=== PATIENT | female | born 1960 | race African-American/Black ===

== ENCOUNTER 2016-12-28 00:33 | Emergency (ER) | payer MEDICARE, MEDICAID ==
[~2016-12-28] VITALS: Ht 157.5 cm; Wt 71.0 kg
[~2016-12-28 00:33] MED LIST: ALBUTEROL; ATOR20TA; CARI250T; MONT4TAB9; PREDNISONE; VIC; ZOLOFT
[2016-12-28] MEDS ORDERED: ALBUTEROL (0.083%) 2.5MG/3ML NEB HHN STA (02:16)
[2016-12-28] MEDS ORDERED: AZITHROMYCIN 500 MG TABLET PO STA (02:16)
[2016-12-28] MEDS ORDERED: IPRATROPIUM BROMIDE (0.02%) 0.5MG/2.5ML NEB HHN STA (02:16)
[2016-12-28] MEDS ORDERED: METHYLPREDNISOLONE SOD SUCC 125 MG/2 ML VIAL IV STA (02:16)
[2016-12-28] MEDS ORDERED: MAGNESIUM 2 G PREMIX 50 ML IV ONE (02:30)
[2016-12-28 06:29] VITALS: BP 112/66
== END 2016-12-28 07:00 | disposition home or self-care (01) ==
LOC: ER 00:33
DX: J45.901 Unspecified asthma with (acute) exacerbation (principal); E78.00 Pure hypercholesterolemia, unspecified; Z88.0 Allergy status to penicillin; Z88.5 Allergy status to narcotic agent; Z88.6 Allergy status to analgesic agent
CPT/HCPCS: 71010; 96365; 96366; 96375; 99285; J2930; J3475; J7611; 99284

== ENCOUNTER 2017-02-22 21:01 | Emergency (ER) | payer MEDICARE, MEDICAID ==
[~2017-02-22] VITALS: Ht 157.5 cm; Wt 72.0 kg
[2017-02-22] MEDS ORDERED: HYDROCODONE/ACETAMINOPHEN 10/325MG TABLET PO ONE (22:00)
[2017-02-22 23:06] VITALS: BP 140/85
== END 2017-02-22 23:10 | disposition home or self-care (01) ==
LOC: ER 21:01
DX: S39.012A Strain of muscle, fascia and tendon of lower back, initial encounter (principal); R07.89 Other chest pain; E78.00 Pure hypercholesterolemia, unspecified; J45.909 Unspecified asthma, uncomplicated; Z88.0 Allergy status to penicillin; Z88.5 Allergy status to narcotic agent; Z88.6 Allergy status to analgesic agent; V89.2XXA Person injured in unspecified motor-vehicle accident, traffic, initial encounter; Y93.89 Activity, other specified; Y92.89 Other specified places as the place of occurrence of the external cause; Y99.8 Other external cause status
CPT/HCPCS: 71010; 99283

== ENCOUNTER 2017-09-03 11:04 | Emergency (ER) | payer MEDICARE, MEDICAID ==
[~2017-09-03] VITALS: Ht 157.5 cm; Wt 68.0 kg
[2017-09-03] MEDS ORDERED: ALBUTEROL (0.083%) 2.5MG/3ML NEB HHN STA (11:21)
[2017-09-03] MEDS ORDERED: IPRATROPIUM BROMIDE (0.02%) 0.5MG/2.5ML NEB HHN STA (11:21)
[2017-09-03] MEDS ORDERED: PREDNISONE 20MG TABLET PO STA (11:21)
[2017-09-03] MEDS ORDERED: ACETAMINOPHEN 325MG TABLET PO ONE (12:00)
[2017-09-03 13:55] VITALS: BP 127/84
== END 2017-09-03 13:58 | disposition home or self-care (01) ==
LOC: ER 13:16
DX: J45.901 Unspecified asthma with (acute) exacerbation (principal); E78.00 Pure hypercholesterolemia, unspecified; Z88.0 Allergy status to penicillin; Z88.6 Allergy status to analgesic agent; Z98.890 Other specified postprocedural states
CPT/HCPCS: 71045; 94640; 99283; J7512; J7611

== ENCOUNTER 2017-09-29 12:53 | Emergency (ER) | payer MEDICARE, MEDICAID ==
[~2017-09-29] VITALS: Ht 162.6 cm; Wt 67.0 kg
[2017-09-29 16:30] VITALS: BP 126/77
== END 2017-09-29 17:00 | disposition home or self-care (01) ==
LOC: ER 13:52
DX: S92.911A Unspecified fracture of right toe(s), initial encounter for closed fracture (principal); E78.00 Pure hypercholesterolemia, unspecified; J45.909 Unspecified asthma, uncomplicated; Z98.890 Other specified postprocedural states; Z88.6 Allergy status to analgesic agent; Z88.5 Allergy status to narcotic agent; Z88.0 Allergy status to penicillin; W22.8XXA Striking against or struck by other objects, initial encounter; Y93.89 Activity, other specified; Y92.018 Other place in single-family (private) house as the place of occurrence of the external cause
CPT/HCPCS: 73610; 73630; 99284

== ENCOUNTER 2018-02-06 20:42 | Emergency (ER) | payer MEDICARE, MEDICAID ==
[~2018-02-06] VITALS: Ht 157.5 cm; Wt 66.0 kg
[2018-02-07] MEDS ORDERED: ALBUTEROL (0.083%) 2.5MG/3ML NEB HHN STA ×2 (00:03→01:52)
[2018-02-07] MEDS ORDERED: IPRATROPIUM BROMIDE (0.02%) 0.5MG/2.5ML NEB HHN STA (00:03)
[2018-02-07] MEDS ORDERED: PREDNISONE 20MG TABLET PO STA (01:52)
[2018-02-07 03:01] LABS: BASOPHILS % 0.5 % (0.0-2.0); EOSINOPHILS % 0.9 % (0.0-5.0); HEMATOCRIT. 38.4 % (36.0-48.0); HEMOGLOBIN. 12.7 g/dL (12.0-16.0); LYMPHOCYTES % 45.9 % (20.0-50.0); MEAN CORPUSCULAR HEMOGLOBIN 28.9 pg (28.0-32.0); MEAN PLATELET VOLUME 9.1 fl (7.4-10.4); MONOCYTES % 9.2 % (2.0-8.0); NEUTROPHILS % 43.5 % (40.0-76.0); PLATELET 266 x1000/uL (130-400); RED BLOOD CELL COUNT 4.41 mill/uL (4.2-5.4); RED CELL DISTRIBUTION WIDTH 13.2 % (11.6-14.6)
[2018-02-07 03:04] LABS: CHLORIDE 105 mEq/L (98-107)
[2018-02-07] MEDS ORDERED: POTASSIUM CHLORIDE 20MEQ TABLET SR PO SCH (03:30)
[2018-02-07 03:58] VITALS: BP 109/61
== END 2018-02-07 04:07 | disposition home or self-care (01) ==
LOC: ER 20:42
DX: J45.901 Unspecified asthma with (acute) exacerbation (principal); R07.89 Other chest pain; R10.13 Epigastric pain; E78.00 Pure hypercholesterolemia, unspecified; E87.6 Hypokalemia; Z88.5 Allergy status to narcotic agent; Z88.6 Allergy status to analgesic agent; Z88.0 Allergy status to penicillin; Z90.89 Acquired absence of other organs; Z98.890 Other specified postprocedural states
CPT/HCPCS: 36415; 71045; 80053; 83880; 84484; 85025; 85379; 93005; 94640; 94644; 99285; J7512; J7611

== ENCOUNTER → 2021-12-19 | Day surgery (SDC) | payer MEDICARE, MEDICAID ==
[~2021-12-19] VITALS: Ht 157.5 cm; Wt 65.8 kg
[~2021-12-19] MED LIST changes: +ACETAMINOPHEN 325MG TABLET PO PRN; +ALBU18HF2 IH; +BENZ100C86 PO; +CARI250T PO; +DEXAMETHASONE 4MG/ML 1ML VIAL ONE; +FENTANYL CITRATE/PF 50MCG/ML 2ML VIAL ONE; +HYDR-4009 PO; +HYDROMORPHONE HCL/PF 2MG/ML CPJ IV PRN; +HYDROMORPHONE HCL/PF 2MG/ML CPJ ONE; +LABETALOL 5MG/ML SYR 20 MG/4 ML SYRINGE IV PRN; +LACTATED RINGERS 1,000 ML IV SCH; +MEPERIDINE HCL/PF 25MG/ML CPJ IV PRN; +MIDAZOLAM HCL 2 MG/2 ML VIAL ONE; +ONDA4TAB11 SL; +ONDANSETRON HCL 4MG/2ML INJ IV PRN; +OXYB5TAB17 PO; +PROPOFOL 200MG/20ML VIAL IV ONE; +SIMV-46 PO
[2021-12-19 07:20] LABS: BASOPHILS % 0.9 % (0.0-2.0); EOSINOPHILS % 3.5 % (0.0-5.0); HEMATOCRIT. 39.7 % (36.0-48.0); HEMOGLOBIN. 13.1 g/dL (12.0-16.0); LYMPHOCYTES % 34.1 % (20.0-50.0); MEAN CORPUSCULAR HEMOGLOBIN 29.1 pg (28.0-32.0); MEAN CORPUSCULAR VOLUME 87.7 fL (81.0-99.0); MEAN PLATELET VOLUME 8.1 fl (7.4-10.4); MONOCYTES % 8.5 % (2.0-8.0); PLATELET 318 x1000/uL (130-400); RED BLOOD CELL COUNT 4.52 mill/uL (4.2-5.4); RED CELL DISTRIBUTION WIDTH 12.5 % (11.6-14.6)
[2021-12-19 07:25] LABS: CLARITY URINE CLEAR (CLEAR); COLOR URINE YELLOW (YELLOW); KETONES URINE NEGATIVE (NEGATIVE); LEUKOCYTE ESTERASE URINE 1+ (NEGATIVE); NITRITE URINE NEGATIVE (NEGATIVE); OCCULT BLOOD URINE NEGATIVE (NEGATIVE); PROTEIN URINE NEGATIVE (NEGATIVE); SPECIFIC GRAVITY URINE 1.018 (1.005-1.030); UROBILINOGEN URINE 0.2 E.U./dL (0.2-1.0)
[2021-12-19 07:33] LABS: PARTIAL THROMBOPLASTIN TIME 26.5 sec (23.4-31.0); PROTHROMBIN TIME 10.3 sec (9.6-11.0)
[2021-12-19 08:28] LABS: UCG SCREEN NEGATIVE
[2021-12-19 08:55] LABS: CHLORIDE 106 mEq/L (98-107)
== END | disposition home or self-care (01) ==
LOC: OR 06:47
PROVIDERS: ATTEND Obstetrics & Gynecology Obstetrics
DX: N95.0 Postmenopausal bleeding (principal); E78.00 Pure hypercholesterolemia, unspecified; J45.909 Unspecified asthma, uncomplicated; Z79.899 Other long term (current) drug therapy; Z98.890 Other specified postprocedural states; Z20.822 Contact with and (suspected) exposure to COVID-19
CPT/HCPCS: 36415; 58558; 80048; 81003; 81025; 85025; 85610; 85730; 87426; 88305; 93005; C9803; J1100; J1170; J2250; J2704; J3010

== ENCOUNTER 2024-05-13 04:42 | Emergency (ER) | payer OTHER, MEDICARE, MEDICAID ==
[~2024-05-13] VITALS: Ht 162.6 cm; Wt 80.0 kg
[~2024-05-13 04:42] MED LIST changes: -ACETAMINOPHEN 325MG TABLET PO PRN; -ALBUTEROL; -ATOR20TA; -CARI250T; -DEXAMETHASONE 4MG/ML 1ML VIAL ONE; -FENTANYL CITRATE/PF 50MCG/ML 2ML VIAL ONE; -HYDROMORPHONE HCL/PF 2MG/ML CPJ IV PRN; -HYDROMORPHONE HCL/PF 2MG/ML CPJ ONE; -LABETALOL 5MG/ML SYR 20 MG/4 ML SYRINGE IV PRN; -LACTATED RINGERS 1,000 ML IV SCH; -MEPERIDINE HCL/PF 25MG/ML CPJ IV PRN; -MIDAZOLAM HCL 2 MG/2 ML VIAL ONE; +MONT4TAB71; -MONT4TAB9; +ONDA-239 SL; -ONDA4TAB11 SL; -ONDANSETRON HCL 4MG/2ML INJ IV PRN; +OXYB-52 PO; -OXYB5TAB17 PO; -PREDNISONE; -PROPOFOL 200MG/20ML VIAL IV ONE; -VIC; -ZOLOFT
[2024-05-13 04:53] VITALS: O2SAT 100
[2024-05-13 04:54] VITALS: BP 148/85; PULSE 82; RESP 18; TEMP 36.7; O2SAT 98
== END 2024-05-13 05:44 | disposition home or self-care (01) ==
LOC: ER 04:42
DX: G89.29 Other chronic pain (principal); M79.672 Pain in left foot; E78.00 Pure hypercholesterolemia, unspecified; J45.909 Unspecified asthma, uncomplicated; Z88.0 Allergy status to penicillin; Z88.5 Allergy status to narcotic agent; Z88.6 Allergy status to analgesic agent; Z79.899 Other long term (current) drug therapy; Z98.890 Other specified postprocedural states
CPT/HCPCS: 73630; 99283

== ENCOUNTER 2025-01-07 21:08 | Emergency (ER) | payer MEDICARE, MEDICAID ==
[~2025-01-07] VITALS: Ht 165.1 cm; Wt 72.0 kg
[2025-01-07 21:11] VITALS: O2SAT 99
[2025-01-07 21:18] VITALS: BP 134/100; PULSE 78; RESP 18; TEMP 36.8; O2SAT 98
[2025-01-07] MEDS ORDERED: P50 MT (21:53)
[2025-01-07] MEDS ORDERED: DIPH25CA83 MT (21:53)
[2025-01-07] MEDS ORDERED: CALA180L6 TP (21:53)
== END 2025-01-07 22:10 | disposition home or self-care (01) ==
LOC: ER 21:08
DX: T78.40XA Allergy, unspecified, initial encounter (principal); E78.00 Pure hypercholesterolemia, unspecified; J45.909 Unspecified asthma, uncomplicated; Z59.00 Homelessness unspecified; Z90.710 Acquired absence of both cervix and uterus; Z98.890 Other specified postprocedural states; Z88.8 Allergy status to other drugs, medicaments and biological substances; Z88.6 Allergy status to analgesic agent; Z88.5 Allergy status to narcotic agent; Z88.0 Allergy status to penicillin; X58.XXXA Exposure to other specified factors, initial encounter
CPT/HCPCS: 99283

== ENCOUNTER 2025-01-08 20:26 | Inpatient (IN) | payer MEDICARE, MEDICAID ==
[~2025-01-08] VITALS: Ht 157.5 cm; Wt 73.9 kg
[~2025-01-08 20:26] MED LIST changes: +CALA180L6 TP; +DIPH25CA83 MT; +P50 MT
[2025-01-08] MEDS ORDERED: METHYLPREDNISOLONE 40MG/ML INJ IV ONE (22:30)
[2025-01-08 22:45] VITALS: PULSE 89; RESP 18; O2SAT 98
[2025-01-08] MEDS: ALBUTEROL (0.083%) 2.5MG/3ML NEB HHN SCH (22:46)
[2025-01-08] MEDS: IPRATROPIUM BROMIDE (0.02%) 0.5MG/2.5ML NEB HHN SCH (22:47)
[2025-01-08 23:24] LABS: BASOPHILS % 0.3 % (0.0-2.0); EOSINOPHILS % 0.0 % (0.0-5.0); HEMATOCRIT. 39.2 % (36.0-48.0); HEMOGLOBIN. 12.7 g/dL (12.0-16.0); LYMPHOCYTES % 13.2 % (20.0-50.0); MEAN PLATELET VOLUME 9.0 fl (7.4-10.4); MONOCYTES % 1.8 % (2.0-8.0); NEUTROPHILS % 84.7 % (40.0-76.0); PLATELET 302 x1000/uL (130-400); RED BLOOD CELL COUNT 4.44 mill/uL (4.2-5.4); RED CELL DISTRIBUTION WIDTH 12.9 % (11.6-14.6)
[2025-01-08 23:28] LABS: CREATININE 0.9 mg/dL (0.6-1.0); UREA NITROGEN BLOOD 7 mg/dL (9-23)
[2025-01-08 23:30] LABS: ASPARTATE AMINOTRANSFERASE 20 IU/L (<34); BILIRUBIN DIRECT < 0.1 mg/dL (<=3.0); BILIRUBIN TOTAL 0.2 mg/dL (0.1-1.0); PROTEIN TOTAL 7.6 g/dL (6.0-8.3)
[2025-01-08] MEDS: EPINEPHRINE 1:1000 1 MG/ML AMP INJ ONE (23:32)
[2025-01-08] MEDS: FAMOTIDINE 20MG/2ML VIAL IV ONE (23:32)
[2025-01-08] MEDS: DIPHENHYDRAMINE 50MG/ML VIAL IV ONE (23:33)
[2025-01-08] MEDS: METHYLPREDNISOLONE SOD SUCC 125MG/2ML (ACT-O-VIAL) IV NR (23:33)
[2025-01-09] VITALS (9 sets, daily range): BP systolic 115–137; BP diastolic 63–83; PULSE 71–102; RESP 16–20; TEMP 36.3–36.6; O2SAT 97–99
[2025-01-09] MEDS ORDERED: DEXTROSE 50% WATER 50ML SYRINGE IV PRN (00:30)
[2025-01-09] MEDS ORDERED: ACETAMINOPHEN 325MG TABLET PO PRN (00:30)
[2025-01-09] MEDS ORDERED: DOCUSATE SODIUM 100MG CAPSULE PO PRN (00:30)
[2025-01-09] MEDS ORDERED: CLONIDINE 0.1MG TABLET PO PRN (00:30)
[2025-01-09 01:15] LABS: INR 1.0
[2025-01-09 02:05] LABS: BG BASE EXCESS 0.4 mmol/L (-2.0-3.0); BG CARBOXYHEMOGLOBIN 0.3 % (0.5-1.5); BG DEOXYHEMOGLOBIN 2.1 % (0.0-5.0); BG HCO3 ACT 24.6 mmol/L (21.0-28.0); BG METHEMOGLOBIN 0.0 % (0.5-1.5); BG OXYGEN SATURATION 97.9 % (94.0-98.0); BG OXYHEMOGLOBIN 97.6 % (94.0-98.0); BG PCO2 38.6 mmHg (32.0-45.0); BG PH 7.423 (7.350-7.450); BG PO2 96.3 mmHg (83.0-108.0); BG SAMPLE SITE RIGHT RADIAL; BG TOTAL HEMOGLOBIN 13.7 g/dL (12.0-16.0); BG VENT MODE ROOM AIR
[2025-01-09] MEDS: HYDROCODONE/ACETAMINOPHEN 10/325MG TABLET PO PRN (02:53)
[2025-01-09] MEDS: BLOOD SUGAR DIAGNOSTIC STRIP TEST SCH (05:56)
[2025-01-09] MEDS: INSULIN LISPRO 100 UNITS/ML SUBCUT SCH (07:50)
[2025-01-09] MEDS: OXYBUTYNIN CHLORIDE 5MG TABLET PO SCH (08:59)
[2025-01-09] MEDS: PANTOPRAZOLE SODIUM 40 MG/VIAL IV SCH (08:59)
[2025-01-09] MEDS: METHYLPREDNISOLONE SOD SUCC 40MG/ML (ACT-O-VIAL) IV SCH (08:59)
[2025-01-09] MEDS: IPRATROPIUM/ALBUTEROL 0.5-3(2.5)MG/3ML NEB HHN PRN (09:48)
[2025-01-09 10:11] LABS: TROPONIN I HIGH SENSITIVITY < 4 ng/L (3.0-34)
[2025-01-09 14:23] LABS: *AMPHETAMINES SCREEN URINE NEGATIVE (NEGATIVE); *BARBITURATES SCREEN URINE NEGATIVE (NEGATIVE); *BENZODIAZEPINES SCREEN URINE NEGATIVE (NEGATIVE); *COCAINE SCREEN URINE NEGATIVE (NEGATIVE); CLARITY URINE CLEAR (CLEAR); COLOR URINE YELLOW (YELLOW); GLUCOSE URINE NEGATIVE (NEGATIVE); KETONES URINE NEGATIVE (NEGATIVE); LEUKOCYTE ESTERASE URINE NEGATIVE (NEGATIVE); NITRITE URINE NEGATIVE (NEGATIVE); OCCULT BLOOD URINE NEGATIVE (NEGATIVE); PH URINE 6.0 (4.5-8.0); PROTEIN URINE NEGATIVE (NEGATIVE); SPECIFIC GRAVITY URINE 1.022 (1.005-1.030); UROBILINOGEN URINE 0.2 E.U./dL (0.2-1.0)
[2025-01-09 14:24] LABS: CANNABINOID URINE SCREEN NEGATIVE (NEGATIVE); ECSTASY MDMA SCREEN URINE NEGATIVE (NEGATIVE); METHADONE URINE SCREEN NEGATIVE (NEGATIVE); OPIATES URINE SCREEN PRESUMPTIVE POSITIVE (NEGATIVE); PHENCYCLIDINE URINE SCREEN NEGATIVE (NEGATIVE)
[2025-01-09] MEDS: DIPHENHYDRAMINE 50MG/ML VIAL IV PRN (16:37)
[2025-01-09 19:20] LABS: TROPONIN I HIGH SENSITIVITY < 4 ng/L (3.0-34)
[2025-01-09] MEDS ORDERED: ATORVASTATIN CALCIUM 20MG TABLET PO SCH (21:00)
[2025-01-09] MEDS ORDERED: PATIENT'S OWN MEDICATION PO SCH (21:00)
[2025-01-09] MEDS: SIMVASTATIN 40 MG TABLET PO SCH (21:27)
[2025-01-10] VITALS (7 sets, daily range): BP systolic 110–126; BP diastolic 67–74; PULSE 68–82; RESP 16–20; TEMP 36.4–36.7; O2SAT 97–99
[2025-01-10 07:34] LABS: BASOPHILS % 0.0 % (0.0-2.0); EOSINOPHILS % 0.0 % (0.0-5.0); HEMATOCRIT. 38.4 % (36.0-48.0); HEMOGLOBIN. 12.5 g/dL (12.0-16.0); LYMPHOCYTES % 7.6 % (20.0-50.0); MEAN PLATELET VOLUME 9.4 fl (7.4-10.4); MONOCYTES % 2.8 % (2.0-8.0); NEUTROPHILS % 89.6 % (40.0-76.0); PLATELET 310 x1000/uL (130-400); RED BLOOD CELL COUNT 4.43 mill/uL (4.2-5.4); RED CELL DISTRIBUTION WIDTH 12.9 % (11.6-14.6)
[2025-01-10 07:54] LABS: CREATININE 0.8 mg/dL (0.6-1.0); T4 FREE 1.07 ng/dL (0.89-1.76); TRIGLYCERIDE 85 mg/dL (0-150); UREA NITROGEN BLOOD 10 mg/dL (9-23)
[2025-01-10 07:55] LABS: LDL CHOLESTEROL 241 mg/dL (5-100)
[2025-01-10] MEDS: IPRATROPIUM/ALBUTEROL 0.5-3(2.5)MG/3ML NEB HHN SCH (16:44)
[2025-01-10] MEDS: FLUTICASONE PROPIONATE 50MCG/SPRAY BOTTLE BOTHNSTRLS SCH (21:13)
[2025-01-10] MEDS: BUDESONIDE 0.5MG/2ML NEB HHN SCH (21:22)
[2025-01-11] VITALS (10 sets, daily range): BP systolic 113–144; BP diastolic 68–87; PULSE 60–106; RESP 16–20; TEMP 36.4–36.9; O2SAT 96–99
[2025-01-11] MEDS ORDERED: NALOXONE HCL 0.4MG/ML VIAL IV PRN (13:45)
[2025-01-11] MEDS: LORATADINE 10MG TABLET PO SCH (15:38)
[2025-01-11] MEDS: FAMOTIDINE 20MG TABLET PO SCH (21:00)
[2025-01-12] VITALS (10 sets, daily range): BP systolic 111–143; BP diastolic 68–95; PULSE 63–116; RESP 16–19; TEMP 36.1–36.4; O2SAT 96–99
[2025-01-12] MEDS ORDERED: LORAZEPAM 0.5MG TABLET PO NR (22:15)
[2025-01-12] MEDS: IPRATROPIUM/ALBUTEROL 0.5-3(2.5)MG/3ML NEB HHN SCH (22:18)
[2025-01-13] VITALS (9 sets, daily range): BP systolic 130–145; BP diastolic 67–90; PULSE 79–99; RESP 17–20; TEMP 36.1–36.6; O2SAT 96–99
[2025-01-13] MEDS: LORAZEPAM 0.5MG TABLET PO NR (06:52)
[2025-01-13 08:47] LABS: CREATININE 0.7 mg/dL (0.6-1.0)
[2025-01-13 08:48] LABS: UREA NITROGEN BLOOD 11 mg/dL (9-23)
[2025-01-13 08:49] LABS: ASPARTATE AMINOTRANSFERASE 18 IU/L (<34); PROTEIN TOTAL 7.7 g/dL (6.0-8.3)
[2025-01-13 08:50] LABS: BILIRUBIN DIRECT < 0.1 mg/dL (<=3.0); BILIRUBIN TOTAL 0.3 mg/dL (0.1-1.0); PHOSPHORUS 2.9 mg/dL (2.5-4.9)
[2025-01-13 08:56] LABS: INR 1.0
[2025-01-13 09:29] LABS: BASOPHILS % 0.1 % (0.0-2.0); EOSINOPHILS % 0.0 % (0.0-5.0); HEMATOCRIT. 40.9 % (36.0-48.0); HEMOGLOBIN. 13.3 g/dL (12.0-16.0); LYMPHOCYTES % 12.9 % (20.0-50.0); MEAN PLATELET VOLUME 9.1 fl (7.4-10.4); MONOCYTES % 6.2 % (2.0-8.0); NEUTROPHILS % 80.8 % (40.0-76.0); PLATELET 338 x1000/uL (130-400); RED BLOOD CELL COUNT 4.71 mill/uL (4.2-5.4); RED CELL DISTRIBUTION WIDTH 13.0 % (11.6-14.6)
[2025-01-13] MEDS ORDERED: LORATADINE 10MG TABLET PO NR (21:15)
[2025-01-14] VITALS (9 sets, daily range): BP systolic 108–148; BP diastolic 60–98; PULSE 60–121; RESP 16–25; TEMP 36.2–36.5; O2SAT 97–100
[2025-01-14] MEDS: DIATR MEGLU/DIATRIZOATE SOLN 30ML PO SCH (12:12)
[2025-01-14] MEDS ORDERED: IOHEXOL-300 100 ML BOTTLE ONE (15:20)
[2025-01-14] MEDS: LORAZEPAM 0.5MG TABLET PO PRN (18:55)
[2025-01-15] VITALS (7 sets, daily range): BP systolic 122–128; BP diastolic 65–72; PULSE 62–117; RESP 16–20; TEMP 36.4–36.8; O2SAT 20–99
[2025-01-15 21:34] LABS: PLATELET 317 x1000/uL (130-400); RED BLOOD CELL COUNT 4.62 mill/uL (4.2-5.4); RED CELL DISTRIBUTION WIDTH 13.0 % (11.6-14.6)
[2025-01-15 21:51] LABS: CREATININE 1.0 mg/dL (0.6-1.0); UREA NITROGEN BLOOD 14 mg/dL (9-23)
[2025-01-15] MEDS: METHYLPREDNISOLONE SOD SUCC 40MG/ML (ACT-O-VIAL) IV SCH (22:30)
[2025-01-16] VITALS (10 sets, daily range): BP systolic 109–150; BP diastolic 64–75; PULSE 71–89; RESP 15–20; TEMP 36.4–36.7; O2SAT 96–99
[2025-01-16] MEDS ORDERED: BARIUM SULFATE 176 GM SUSP.RECON ONE (08:48)
[2025-01-16] MEDS ORDERED: EZ-HD SUSPENSION(BARIUM SULFATE 340GM) PO ONE (08:49)
[2025-01-16] MEDS ORDERED: SIMETHICONE/SOD BICARB/CIT AC 1 EACH GRAN.EF.PK ONE (08:49)
[2025-01-16] MEDS: ONDANSETRON HCL 4MG/2ML INJ IV PRN (15:06)
[2025-01-17] VITALS (9 sets, daily range): BP systolic 111–154; BP diastolic 66–94; PULSE 72–91; RESP 18–19; TEMP 36–36.7; O2SAT 97–99
[2025-01-17] MEDS ORDERED: METOCLOPRAMIDE HCL 10MG/2ML VIAL IV PRN (16:00)
[2025-01-17] MEDS ORDERED: LORAZEPAM 0.5MG TABLET PO PRN (17:00)
[2025-01-18] VITALS: BP 106/55; PULSE 75; RESP 16; TEMP 36.1; O2SAT 97
[2025-01-18 08:00] VITALS: BP 110/62; PULSE 78; RESP 18; TEMP 36.3; O2SAT 98
[2025-01-18] MEDS: PREDNISONE 20MG TABLET PO SCH (10:07)
[2025-01-18] MEDS ORDERED: P20 MT (10:09)
[2025-01-18] MEDS ORDERED: PROT40 MT (10:10)
[2025-01-18 12:00] VITALS: BP 109/54; PULSE 82; RESP 20; TEMP 36.6; O2SAT 97
[2025-01-18 16:00] VITALS: BP 125/69; PULSE 79; RESP 18; TEMP 36.4; O2SAT 98
[2025-01-18 21:57] LABS: BASOPHILS % 0.1 % (0.0-2.0); EOSINOPHILS % 0.4 % (0.0-5.0); HEMATOCRIT. 38.4 % (36.0-48.0); HEMOGLOBIN. 12.4 g/dL (12.0-16.0); LYMPHOCYTES % 31.6 % (20.0-50.0); MEAN PLATELET VOLUME 8.4 fl (7.4-10.4); MONOCYTES % 8.9 % (2.0-8.0); NEUTROPHILS % 59.0 % (40.0-76.0); PLATELET 290 x1000/uL (130-400); RED BLOOD CELL COUNT 4.39 mill/uL (4.2-5.4); RED CELL DISTRIBUTION WIDTH 13.2 % (11.6-14.6)
[2025-01-18 22:18] LABS: CREATININE 0.9 mg/dL (0.6-1.0); UREA NITROGEN BLOOD 12 mg/dL (9-23)
[2025-01-19 04:00] VITALS: BP 144/91; PULSE 98; RESP 20; TEMP 37.1; O2SAT 94
[2025-01-19 08:00] VITALS: BP 102/56; PULSE 66; RESP 17; TEMP 36.6; O2SAT 99
[2025-01-19 12:00] VITALS: BP 110/57; PULSE 65; RESP 18; TEMP 36.4; O2SAT 98
[2025-01-19 16:00] VITALS: BP 116/54; PULSE 69; RESP 17; TEMP 36.4; O2SAT 98
[2025-01-19] MEDS: LORAZEPAM 0.5MG TABLET PO PRN (17:01)
[2025-01-19 20:00] VITALS: BP 98/52; PULSE 79; RESP 19; TEMP 36.4; O2SAT 96
[2025-01-20] VITALS (8 sets, daily range): BP systolic 116–140; BP diastolic 72–89; PULSE 78–102; RESP 16–22; TEMP 35.9–36.6; O2SAT 96–100
[2025-01-20] MEDS: IPRATROPIUM/ALBUTEROL 0.5-3(2.5)MG/3ML NEB HHN PRN (08:08)
[2025-01-20] MEDS: PREDNISONE 20MG TABLET PO SCH (09:00)
[2025-01-21 00:22] LABS: CLARITY URINE CLEAR (CLEAR); COLOR URINE YELLOW (YELLOW); GLUCOSE URINE NEGATIVE (NEGATIVE); KETONES URINE NEGATIVE (NEGATIVE); LEUKOCYTE ESTERASE URINE 1+ (NEGATIVE); NITRITE URINE NEGATIVE (NEGATIVE); OCCULT BLOOD URINE NEGATIVE (NEGATIVE); PH URINE 7.0 (4.5-8.0); PROTEIN URINE NEGATIVE (NEGATIVE); SPECIFIC GRAVITY URINE 1.016 (1.005-1.030); UROBILINOGEN URINE 0.2 E.U./dL (0.2-1.0)
[2025-01-21 00:39] LABS: SQUAMOUS EPITHELIAL CELL URINE 2+ /lpf (RARE/1+)
[2025-01-21 00:41] LABS: BACTERIA URINE TRACE; RBC URINE NONE SEEN /hpf (0-2)
[2025-01-21 04:00] VITALS: BP 138/84; PULSE 83; RESP 16; TEMP 36.2; O2SAT 96
[2025-01-21 08:00] VITALS: BP 129/85; PULSE 85; TEMP 36.1
[2025-01-21] MEDS ORDERED: NITR-87 MT (08:51)
[2025-01-21] MEDS: NITROFURANTOIN 100MG M/M CAPSULE PO SCH (09:49)
[2025-01-21 10:50] LABS: BASOPHILS % 0.3 % (0.0-2.0); EOSINOPHILS % 0.5 % (0.0-5.0); HEMATOCRIT. 42.3 % (36.0-48.0); HEMOGLOBIN. 13.5 g/dL (12.0-16.0); LYMPHOCYTES % 29.2 % (20.0-50.0); MEAN PLATELET VOLUME 8.1 fl (7.4-10.4); MONOCYTES % 8.4 % (2.0-8.0); NEUTROPHILS % 61.6 % (40.0-76.0); PLATELET 314 x1000/uL (130-400); RED BLOOD CELL COUNT 4.82 mill/uL (4.2-5.4); RED CELL DISTRIBUTION WIDTH 13.3 % (11.6-14.6)
[2025-01-21 11:05] LABS: CREATININE 0.9 mg/dL (0.6-1.0); UREA NITROGEN BLOOD 10 mg/dL (9-23)
[2025-01-21 12:00] VITALS: BP 124/88; PULSE 79; RESP 18; TEMP 36.2
[2025-01-21] MEDS ORDERED: ONDANSETRON 4MG ODT PO PRN (14:45)
[2025-01-21 15:44] VITALS: PULSE 83; RESP 18; O2SAT 97
[2025-01-21 16:00] VITALS: BP 124/88; PULSE 80; RESP 18; TEMP 36.3
[2025-01-21 20:00] VITALS: BP 93/49; PULSE 97; RESP 19; TEMP 36.3; O2SAT 99
[2025-01-22] VITALS: BP 101/62; PULSE 67; RESP 19; TEMP 36.4; O2SAT 98
[2025-01-22 04:00] VITALS: BP 104/68; PULSE 75; RESP 18; TEMP 36.4; O2SAT 97
[2025-01-22 08:00] VITALS: BP 102/58; PULSE 85; PULSE 90; RESP 14; RESP 17; TEMP 36.7; O2SAT 98
[2025-01-22 14:03] VITALS: BP 102/58; PULSE 90; RESP 17; TEMP 98
== END 2025-01-22 14:58 | disposition left against medical advice (07) | DRG 202 ==
LOC: ER 20:26 → 6WST 01-09 00:21 → EDBEDREQTM 01-09 00:23 → EDBEDREQDT 01-09 00:23 → EDBEDREQ 01-09 00:23 → ENRESERV 01-09 00:43 → 4WST 01-19 04:35
PROVIDERS: ADMIT Student in an Organized Health Care Education/Training Program; ATTEND Student in an Organized Health Care Education/Training Program
DX: J45.901 Unspecified asthma with (acute) exacerbation (principal); T78.2XXA Anaphylactic shock, unspecified, initial encounter; K83.8 Other specified diseases of biliary tract; I10 Essential (primary) hypertension; K76.0 Fatty (change of) liver, not elsewhere classified; R73.9 Hyperglycemia, unspecified; T78.3XXA Angioneurotic edema, initial encounter; R47.02 Dysphasia; R11.2 Nausea with vomiting, unspecified; R00.0 Tachycardia, unspecified; K12.1 Other forms of stomatitis; E78.5 Hyperlipidemia, unspecified; X58.XXXA Exposure to other specified factors, initial encounter; Y93.89 Activity, other specified; Z90.49 Acquired absence of other specified parts of digestive tract; Y92.89 Other specified places as the place of occurrence of the external cause; Y99.8 Other external cause status; Z82.49 Family history of ischemic heart disease and other diseases of the circulatory system; Z88.0 Allergy status to penicillin; Z90.710 Acquired absence of both cervix and uterus; Z79.899 Other long term (current) drug therapy; Z53.29 Procedure and treatment not carried out because of patient's decision for other reasons
CPT/HCPCS: 36415; 36600; 70490; 71045; 74177; 74220; 76700; 80048; 80061; 80076; 80305; 81003; 82375; 82805; 82962; 83036; 83605; 83735; 84100; 84439; 84443; 84484; 85025; 85027; 92610; 93005; 94070; 94640; 94664; 96374; 96375; 97162; 97166; 99283; 99291; A4606; J1200; J1308; J2405; J2470; J2919; J3490; J7512; J7517; J7626; Q9963; Q9967